=== PATIENT | female | born 2000 | race Caucasian/White ===

== ENCOUNTER 2023-02-28 13:51 | Emergency (ER) | payer OTHER ==
[2023-02-28] MEDS ORDERED: TORAdol 30 mg Injection IM ONE (15:00)
--- NOTE | 2023-02-28 15:13 | ERPHSYRPT ---
- History of Present Illness Time Seen by Provider: 02/28/23 13:54 Source: patient Exam Limitations: no limitations Patient Subjective Stated Complaint: pt here for bilateral ankle pain, she states she fell twisitng ankles, states she is unable to bear wt on left ankle Triage Nursing Assessment: pt alert, arrived per [facility] resp easy, skin w/d/p,has swelling to outer aspect of left ankle, no swelling to right ankle, has strong pedal pulse, Physician History: 22 years old female presented in the ER with chief complaint of left ankle pain after she twisted while getting off of concrete step. Moderate intensity sharp pain with movements and difficulty weightbearing. More pain on the lateral aspect of the ankle. No injury anywhere else. Method of Injury: twisted Occurred: just prior to arrival Quality: sharpness Severity of Pain-Max: moderate Severity of Pain-Current: moderate Lower Extremities Pain: ankle: left Modifying Factors: Improves With: cold therapy, immobilization. Worsens With: movement Associated Symptoms: unable to bear weight Allergies/Adverse Reactions: No Known Drug Allergies Allergy (Unverified 02/28/23 14:07) Hx Tetanus, Diphtheria Vaccination/Date Given: No Hx Influenza Vaccination/Date Given: No Hx Pneumococcal Vaccination/Date Given: No Immunizations Up to Date: Yes Travel Risk - International Travel Have you traveled outside of the country in past 3 weeks: No - Coronavirus Screening Are you exhibiting any of the following symptoms?: No Close contact with a COVID-19 positive Pt in past 14-21 Days: No - Vaccine Status Have you recieved a Covid-19 vaccination: Yes [employer]: [employer] [facility] - Vaccination Dates Date of 2cond Vaccination (if applicable): ? Dates if Unknown: ? - Review of Systems Constitutional: No Symptoms Ears, Nose, & Throat: No Symptoms Respiratory: No Symptoms Cardiac: No Symptoms Musculoskeletal: Joint Pain, Joint Swelling Skin: No Symptoms Neurological: No Symptoms Endocrine: No Symptoms Hematologic/Lymphatic: No Symptoms - Past Medical History Pertinent Past Medical History: No - Past Surgical History Past Surgical History: No - Social History Smoking Status: Never smoker Exposure to second hand smoke: No Drug Use: none Patient Lives Alone: No - Female History Hx Last Menstrual Period: 2 weeks ago Hx Now: No - Nursing Vital Signs Nursing Vital Signs: Initial Vital Signs Temperature 97.0 F 02/28/23 14:14 Pulse Rate 78 02/28/23 14:14 Respiratory Rate 18 02/28/23 14:14 Blood Pressure 137/86 02/28/23 14:14 O2 Sat by Pulse Oximetry 97 02/28/23 14:14 Pain Scale Pain Intensity 5 - Physical Exam General Appearance: no apparent distress, alert Neck Exam: normal inspection, supple, full range of motion Cardiovascular/Respiratory Exam: normal breath sounds, regular rate/rhythm Legs Exam: bilateral leg: non-tender, normal inspection, normal range of motion, no evidence of injury Knees Exam: bilateral knee: non-tender, normal inspection, normal range of motion, no evidence of injury Ankle Exam: right ankle: non-tender, normal inspection, normal range of motion, no evidence of injury, left ankle: bone tenderness (Lateral malleolus), limited range of motion, pain, soft tissue tenderness, swelling Foot Exam: bilateral foot: non-tender, normal inspection, normal range of motion, no evidence of injury Neuro/Tendon Exam: normal sensation, normal motor functions Mental Status Exam: alert, oriented x 3, cooperative Skin Exam: normal color SpO2 Interpretation: normal SpO2: 97 O2 Delivery: Room Air Ordered Tests: Active Orders 24 hr Category Date Time Status ANKLE (3 VIEWS) Stat Exams 02/28/23 14:34 Taken Medication Summary Discontinued Medications Generic Name Dose Route Start Last Admin Trade Name Freq PRN Reason Stop Dose Admin Ketorolac Tromethamine 30 mg 02/28/23 15:00 Ketorolac Tromethamine 30 Mg/Ml Inj IM 02/28/23 15:01 STAT ONE - Progress Progress: pain not gone completely Progress Note: 02/28/23 15:12 22 years old female presented in the ER with chief complaint of left ankle pain after she twisted while getting off of concrete step. Moderate intensity sharp pain with movements and difficulty weightbearing. More pain on the lateral aspect of the ankle. No injury anywhere else. Given Toradol for symptomatic relief. X-rays negative for fracture dislocation. I believe patient has sprain, placed in Airc[employer], weightbearing as tolerated and outpatient orthopedics follow-up. Counseled pt/family regarding: diagnosis, need for follow-up, rad results Medical Desision Making - Diagnostic Testing Diagnostic test were ordered, analyzed, and reviewed by me: Yes Radiological Interpretation: Interpreted by me, Reviewed by me - Departure Departure Disposition: Home Clinical Impression: Ankle sprain Condition: Stable Critical Care Time: No Referrals: DOCTOR,NO FAMILY [Primary Care Provider] - Follow up/PCP as directed ORTHO - ERLINDA SWEENEY NP [NON-STAFF PHY W/O PRIVILEGES] - Follow up/PCP as directed (In 2 days for reevaluation) Instructions: Ankle Sprain (DC) Additional Instructions: Take Tylenol/ibuprofen as needed. Intermittent ice application. Weightbearing as tolerated. Follow-up with primary care/orthopedics for reevaluation. Return to ER for any worsening. Prescriptions: Ibuprofen 600 mg PO Q6HPRN PRN 10 Days #20 tablet PRN Reason: Pain
[2023-02-28] MEDS ORDERED: TORAdol 30 mg Injection ONE (15:26)
[2023-02-28 15:42] VITALS: BP 126/78; PULSE 61; O2SAT 100
--- NOTE | 2023-02-28 20:16 | XRAY ---
Indication: Pain following fall. Comparison: None 3 view left ankle demonstrates mild lateral soft tissue swelling. No other bony, articular, or soft tissue abnormalities.
== END 2023-02-28 15:57 | disposition home or self-care (01) ==
LOC: ED 13:51
DX: S93.402A Sprain of unspecified ligament of left ankle, initial encounter (principal); X50.0XXA Overexertion from strenuous movement or load, initial encounter
CPT/HCPCS: 73610; 96372; 99283; J1885